=== PATIENT | female | born 1945 | race Caucasian/White ===

== ENCOUNTER 2021-03-14 13:34 | Emergency (ER) | payer MEDICARE, SELFPAY ==
--- NOTE | ~2021-03-14 | XR_ITS ---
EXAMINATION: XR humerus RT, XR elbow RT min 3V DATE: 03/14/2021 14:18 INDICATION: Pain at the posterolateral distal right humerus and elbow post fall TECHNIQUE: 1. Anteroposterior and lateral views of the right humerus were obtained. 2. Anteroposterior, two oblique and lateral views of the right elbow were obtained. COMPARISON: None. FINDINGS: Alignment is normal. No fracture. Joint spaces are normal. No right elbow joint effusion. Soft tissue swelling posterior to the tip of the olecranon. IMPRESSION: 1. Mild soft tissue swelling posterior to the olecranon. Otherwise normal right humerus and elbow rad iographs. Reviewed, dictated and finalized at location A. IMPRESSION: 1. Mild soft tissue swelling posterior to the olecranon. Otherwise normal right humerus and elbow radiographs.
[2021-03-14 13:52] VITALS: BP 125/70; PULSE 70; RESP 18; TEMP 36.8; O2SAT 96
--- NOTE | 2021-03-14 14:01 | ED.UPPEXIN ---
HPI - Extremity Injury (Upper) General Chief Complaint: Extremity Injury, Upper Stated Complaint: fall injury Time Seen by Provider: 03/14/21 14:01 Source: patient and family History of Present Illness HPI narrative: patient states she got up last night and lost her balance, falling into her china cabinet. patient has a skin tear to lateral side of upper arm with bruising to elbow. no deformity. normal rom. patient denies any other injuries and is unsure of her last tetanus shot. MD complaint: injury to: right and arm Related Data Home Medications Medication Instructions Recorded Confirmed albuterol sulfate INHALATION 03/14/21 alendronate mg PO 03/14/21 aspirin 81 mg PO DAILY 03/14/21 03/14/21 azelastine 1 spray INTRANASAL Q12H 03/14/21 03/14/21 bupropion HCl PO 03/14/21 mirtazapine 15 mg PO HS 03/14/21 03/14/21 quetiapine 12.5 mg PO HS 03/14/21 03/14/21 Allergies Allergy/AdvReac Type Severity Reaction Status Date / Time acetaminophen Allergy Unknown Confusion Verified 03/14/21 14:02 butalbital Allergy Unknown Confusion Verified 03/14/21 14:02 caffeine Allergy Unknown Confusion Verified 03/14/21 14:02 Review of Systems Review of Systems: CONSTITUTIONAL: Denies fever, chills, or sweats. EYES: Denies visual changes, redness, or discharge. ENT: Denies rhinorrhea, congestion, sore throat, or otalgia. CARDIOVASCULAR: Denies chest pain, palpitations, or edema. RESPIRATORY: Denies cough or dyspnea. GASTROINTESTINAL: Denies abdominal pain, nausea, vomiting, or diarrhea. GENITOURINARY: Denies dysuria or hematuria. SKIN: Denies rash or itching. MUSCULOSKELETAL: Denies back pain, joint pain, or myalgia. NEUROLOGIC: Denies headache, numbness, or weakness. PSYCHIATRIC: Denies anxiety or depression. PMFSH Comments At time of signature, agree with nursing past medical, surgical, social and family history. There is no relevant family history pertinent to the presenting complaint Exam Narrative: GENERAL: Well-appearing, well-nourished, and in no acute distress. HEAD: Normocephalic, atraumatic. EYES: PERRLA and EOMI. ENT: Nares clear, no rhinorrhea or epistaxis. Mucous membranes moist. NECK: Supple. CHEST: Clear to auscultation. No respiratory distress. HEART: Regular rate and rhythm. No murmur heard. Normal peripheral pulses. ABDOMEN: Soft, nontender, nondistended, normal active bowel sounds. EXTREMITIES: Normal range of motion. No edema. SKIN: Warm, dry, no rash. NEURO: No focal deficits. Alert and oriented x3. [place] Coma Scale Eye Opening: Spontaneous 4 [place] Coma Scale Motor: Obeys Commands 6 [place] Coma Scale Verbal: Oriented 5 [place] Coma Scale Total 15 Extrem: Shoulder/upper arm images: 1. 3.5 cm by 5 cm skin tear 2. bruising Course Vital Signs Vital signs: Vital Signs Temperature 36.8 C 03/14/21 13:52 Pulse Rate 70 03/14/21 13:52 Respiratory Rate 18 03/14/21 13:52 Blood Pressure 125/70 03/14/21 13:52 Pulse Oximetry 96 03/14/21 13:52 Temperature 36.8 C 03/14/21 13:52 Pulse Rate 70 03/14/21 13:52 Respiratory Rate 18 03/14/21 13:52 Blood Pressure 125/70 03/14/21 13:52 Pulse Oximetry 96 03/14/21 13:52 MDM - Extremity Injury (Upper) Differential Diagnosis Differential diagnosis: Likely sprain and strain of wrist, fracture of wrist, finger sprain, dislocation of finger, Colles' fracture, fracture of hand, dislocation of shoulder, fracture of humerus and fracture of clavicle Critical Care Time Critical Care Time Critical Care Time: No Discharge Plan Discharge Clinical Impression: Skin tear of elbow without complication, Skin tear of right upper arm without complication Patient Disposition: Home, Self-Care Condition: Stable Instructions: Antibiotic Form, Abrasion (ED) Additional Instructions: wash area with warm soapy water daily for the next week. apply bacitracin to area and cover with clean dry non stick dressing for 5-7 days follow up
[2021-03-14] MEDS: TETANUS,DIPHTHERIA,AC PERTUSSIS ADULT (0.5 ML) BOOSTRIX IM (14:21)
== END 2021-03-14 14:55 | disposition home or self-care (01) ==
PROVIDERS: Emergency Provider Nurse Practitioner Family; PCP Internal Medicine
DX: S41.111A Laceration without foreign body of right upper arm, initial encounter (principal); S51.011A Laceration without foreign body of right elbow, initial encounter; W19.XXXA Unspecified fall, initial encounter; Z23 Encounter for immunization; I10 Essential (primary) hypertension; M19.90 Unspecified osteoarthritis, unspecified site; F41.9 Anxiety disorder, unspecified; Z79.82 Long term (current) use of aspirin
CPT/HCPCS: 73060; 73080; 90471; 90715; 99213; G0463

== ENCOUNTER 2021-04-30 11:35 | Outpatient (CLI) | payer MEDICARE, SELFPAY ==
[2021-04-30 13:23] LABS: INR 1.1; Prothrombin Time 13.7 Seconds (11.1-14.7)
[2021-04-30 13:24] LABS: Partial Thromboplastin Time 36.8 SECONDS (22.3-36.8)
== END 2021-04-30 11:36 | disposition home or self-care (01) ==
LOC: ANHSURGERY 11:42
PROVIDERS: PCP Internal Medicine; Visit Provider Urology
DX: N81.4 Uterovaginal prolapse, unspecified (principal); N39.3 Stress incontinence (female) (male); Z51.81 Encounter for therapeutic drug level monitoring; Z79.899 Other long term (current) drug therapy
CPT/HCPCS: 36415; 85610; 85730; 86850; 86900; 86901; 87086; 87088

== ENCOUNTER 2021-05-13 00:53 | Day surgery (SDC) | payer MEDICARE, SELFPAY ==
--- NOTE | 2021-04-30 11:34 | PC.NURSE ---
Report to the Outpatient Waiting Room, entrance under the green pavilion located off [facility], at time _0600__ on date _05/13/21_. OR Time: __0730__. - You and your visitor will be asked a series of questions to screen for COVID 19 for your protection. - A mask is required within the hospital. - Only one visitor is allowed at this time. Patient visitors will be guided where to wait when not with patient. Preoperative COVID Testing Requirements: No COVID Test needed if: (proof is required; if not received patient will have Rapid Test prior to entry) - Patient has received COVID Vaccine at least 14 days prior to procedure date or - Patient has positive COVID test result within last 90 days of surgery date. COVID Test needed if above criteria is not met If not COVID vaccinated a COVID test must be conducted within 72 hours of surgery and patient is asked to isolate self from time of testing until procedure. You will go to the [facility] for your COVID testing. The [facility] is located at the corner of [address] [facility]. You will only be called if COVID results are positive and your surgeon may reschedule your elective surgery date. Patients may have clear liquids (water, carbonated beverages, clear teas, apple juice) until 3 hours prior to surgery (0430 AM) with a maximum of 20 ounces. - No food from midnight until time of surgery - Infants may have breast milk until 4 hours before surgery, formula 6 hours prior to surgery. - Children will be allowed to drink immediately following surgery. If applicable, please bring a bottle or sippy cup to assist with drinking. Juice, water, soda, and popsicles are readily available. For infants on formula, please bring formula the day of surgery. Pacifiers are allowed. Take the following medications with a SIP of water the morning of surgery: __AMLODIPINE, BUPROPION, INHALER, LORAZEPAM & NASAL SPAY IF NEEDED__ Medications to discontinue per physician __ASPIRIN & ALL VITAMINS Date to take last dose 04/29/21 Please no make-up, nail northern irish, hairspray, perfume, deodorant, or body powder the day of surgery. No jewelry (including any body piercings) or valuables the day of surgery, leave them at home. Please take a shower or bath the night before, or the morning of, surgery with an antibacterial soap. Wear comfortable, loose fitting clothing. Children are encouraged to wear pajamas. - Jewelry must be removed prior to entering the operating room. Rings and piercings that are not removed may be cut off. - The hospital will not accept responsibility for valuables. - Please leave all valuables, including medications, at home the day of surgery. If you are going home after surgery, a licensed fuel oil truck driver must drive you home. - NO public transportation without another adult. - We recommend that an adult stay with you for 24 hours following discharge. - We also recommend that you do not drive, make important decision, drink alcoholic beverages, or take any drugs that were not prescribed by your health care provider for at least 24 hours after your discharge time. For Pediatric surgeries, we recommend two adults accompany the child home (only one inside the building at this time). Follow any additional instructions given to you from your surgeon. Telephone instructions given to ___PT and asked if any additional questions and then verbalized understanding. Patient advised to call surgeon office or pre surgery nurse liaison [phone] if any additional questions.
[2021-04-30 12:27] VITALS: BP 168/74; PULSE 78; RESP 20; TEMP 37.1; O2SAT 96; BMI 19.3
--- NOTE | 2021-05-07 16:00 | PM.IMHP ---
H&P: HPI History of Present Illness Date/Time: 05/07/21 16:00 75-year-old 4 para 4 admitted for robotic supracervical hysterectomy and bilateral salpingo-oophorectomy secondary to pelvic prolapse. Neal Aden will perform sacral colpopexy as well. Risks and benefits reviewed in great detail Chief Complaint: Uterine prolapse Review of Systems Review of Systems: All systems reviewed & are unremarkable except as noted in HPI and below PMFSH Social History Social History Years smoked: 30 Smoking status: Former smoker Tobacco type: cigarettes Second hand tobacco smoke exposure: No Additional smoking assessment comments: STATES SMOKED 3-4 CIGS/DAY/30 YRS - QUIT 2007 Alcohol intake: never Substance use: never Substance use type: does not use Spiritual care concerns: No Meds Home Medications and Allergies Home Medications Medication Instructions Recorded Confirmed Type albuterol sulfate 2 inh INHALATION Q6H 03/14/21 04/30/21 History amlodipine 5 mg PO QAM 03/14/21 04/30/21 History aspirin 81 mg PO DAILY 03/14/21 04/30/21 History azelastine 1 spray INTRANASAL Q12H PRN 03/14/21 04/30/21 History bupropion HCl 150 mg PO QAM 03/14/21 04/30/21 History cholecalciferol (vitamin D3) 50 mcg PO DAILY 03/14/21 04/30/21 History famotidine 20 mg PO BID 03/14/21 04/30/21 History fluticasone propionate 2 spray INTRANASAL DAILY PRN 03/14/21 04/30/21 History loperamide 2 mg PO DAILY PRN 03/14/21 04/30/21 History loratadine 10 mg PO DAILY 03/14/21 04/30/21 History lorazepam 1 mg PO TID PRN 03/14/21 04/30/21 History mirtazapine 15 mg PO HS 03/14/21 04/30/21 History montelukast 5 mg PO HS 03/14/21 04/30/21 History quetiapine 12.5 mg PO HS 03/14/21 04/30/21 History atorvastatin 10 mg PO HS 04/30/21 04/30/21 History omega-3 fatty acids-vitamin E 1 cap DAILY 04/30/21 04/30/21 History [Fish Oil] Allergies Allergy/AdvReac Type Severity Reaction Status Date / Time acetaminophen Allergy Unknown Confusion Verified 04/30/21 12:12 butalbital Allergy Unknown Confusion Verified 04/30/21 12:12 caffeine Allergy Unknown Confusion Verified 04/30/21 12:12 gluten AdvReac STOMACH Verified 04/30/21 12:13 UPSET Exam Const: General: no acute distress Eyes: General: appearance normal, both eyes and all related structures Neck: Neck: supple and no JVD Thyroid: thyroid normal Resp: Effort & Inspection: normal respiratory effort Auscultation: clear to auscultation bilaterally Cardio: Rate: regular rate Rhythm: regular rhythm GI: Inspection: non-distended GI Palp: Yes Soft to palpation, No Tenderness to palpation present (GI) and No Guarding due to palpation present (GI) Auscultation: normal bowel sounds : External Female Exam: normal external appearance (Uterine prolapse is noted) Speculum Exam - Vagina: normal appearance of the vagina Speculum Exam - Cervix: normal appearance of the cervix Bimanual exam- vagina & uterus: non-tender Bimanual Exam- Adnexa, other: No adnexal tenderness Skin: General skin exam: no rashes or lesions noted Extrem: General: normal to inspection and no edema Psych: Mental Status: mental status grossly normal Affect: normal affect Assessment and Plan Additional Plan Impression: Uterine prolapse Plan: Robotic supracervical hysterectomy and bilateral salpingo-oophorectomy.
--- NOTE | 2021-05-10 09:44 | P.HP_ITS ---
H&P: HPI History of Present Illness Date/Time: 05/10/21 09:44 75-year-old female with uterine prolapse and stress incontinence on urodynamic Chief Complaint: Pelvic organ prolapse, stress incontinence Review of Systems Review of Systems: All systems reviewed & are unremarkable except as noted in HPI and below PMFSH Social History Social History Years smoked: 30 Smoking status: Former smoker Tobacco type: cigarettes Second hand tobacco smoke exposure: No Additional smoking assessment comments: STATES SMOKED 3-4 CIGS/DAY/30 YRS - QUIT 2007 Alcohol intake: never Substance use: never Substance use type: does not use Spiritual care concerns: No Meds Home Medications and Allergies Home Medications Medication Instructions Recorded Confirmed Type albuterol sulfate 2 inh INHALATION Q6H 03/14/21 04/30/21 History amlodipine 5 mg PO QAM 03/14/21 04/30/21 History aspirin 81 mg PO DAILY 03/14/21 04/30/21 History azelastine 1 spray INTRANASAL Q12H PRN 03/14/21 04/30/21 History bupropion HCl 150 mg PO QAM 03/14/21 04/30/21 History cholecalciferol (vitamin D3) 50 mcg PO DAILY 03/14/21 04/30/21 History famotidine 20 mg PO BID 03/14/21 04/30/21 History fluticasone propionate 2 spray INTRANASAL DAILY PRN 03/14/21 04/30/21 History loperamide 2 mg PO DAILY PRN 03/14/21 04/30/21 History loratadine 10 mg PO DAILY 03/14/21 04/30/21 History lorazepam 1 mg PO TID PRN 03/14/21 04/30/21 History mirtazapine 15 mg PO HS 03/14/21 04/30/21 History montelukast 5 mg PO HS 03/14/21 04/30/21 History quetiapine 12.5 mg PO HS 03/14/21 04/30/21 History atorvastatin 10 mg PO HS 04/30/21 04/30/21 History omega-3 fatty acids-vitamin E 1 cap DAILY 04/30/21 04/30/21 History [Fish Oil] Allergies Allergy/AdvReac Type Severity Reaction Status Date / Time acetaminophen Allergy Unknown Confusion Verified 12/07/21 12:12 butalbital Allergy Unknown Confusion Verified 04/30/21 12:12 caffeine Allergy Unknown Confusion Verified 04/30/21 12:12 gluten AdvReac STOMACH Verified 04/30/21 12:13 UPSET Exam Narrative: Anterior wall at +4. [place] at +3. Assessment and Plan Assessment and plan (1) Uterine prolapse: Code(s): N81.4 - Uterovaginal prolapse, unspecified Status: Acute Assessment and Plan: Robotic sacral colpopexy (2) CARMEN (stress urinary incontinence, female): Code(s): N39.3 - Stress incontinence (female) (male) Status: Acute Assessment and Plan: Urethral sling
[2021-05-13] VITALS (22 sets, daily range): BP systolic 108–143; BP diastolic 38–81; PULSE 67–87; RESP 12–20; TEMP 36–36.6; O2SAT 84–100
--- NOTE | 2021-05-13 06:27 | WPDANESEPP ---
Anes - Eval Pre Procedure Procedure: Operation Date: 05/13/21 07:30 Proposed Procedures p Robotic Sacrocolpopexy, Urethral Sling - Ac Aden MD s Robotic Assisted Supracervical Hysterectomy With Bilateral Salpingo-Oophorectomy - Cornel Lima MD Date/Time: 05/13/21 06:27 Pre Op Diagnosis: complete uterine prolapse, cystocele, stress incon Patient Data Age: 75 Gender: F Height: 1.63 m Weight: 51.1 kg Last Vital Signs Temp 37.1 C 04/30/21 12:27 Pulse 78 04/30/21 12:27 Resp 20 04/30/21 12:27 BP 168/74 H 04/30/21 12:27 Pulse Ox 96 04/30/21 12:27 Allergies Allergy/AdvReac Type Severity Reaction Status Date / Time acetaminophen Allergy Unknown Confusion Verified 04/30/21 12:12 butalbital Allergy Unknown Confusion Verified 04/30/21 12:12 caffeine Allergy Unknown Confusion Verified 04/30/21 12:12 gluten AdvReac STOMACH Verified 04/30/21 12:13 UPSET Home Medications Medication Instructions Recorded Confirmed Type albuterol sulfate 2 inh INHALATION Q6H 03/14/21 04/30/21 History amlodipine 5 mg PO QAM 03/14/21 04/30/21 History aspirin 81 mg PO DAILY 03/14/21 04/30/21 History azelastine 1 spray INTRANASAL Q12H PRN 03/14/21 04/30/21 History bupropion HCl 150 mg PO QAM 03/14/21 04/30/21 History cholecalciferol (vitamin D3) 50 mcg PO DAILY 03/14/21 04/30/21 History famotidine 20 mg PO BID 03/14/21 04/30/21 History fluticasone propionate 2 spray INTRANASAL DAILY PRN 03/14/21 04/30/21 History loperamide 2 mg PO DAILY PRN 03/14/21 04/30/21 History loratadine 10 mg PO DAILY 03/14/21 04/30/21 History lorazepam 1 mg PO TID PRN 03/14/21 04/30/21 History mirtazapine 15 mg PO HS 03/14/21 04/30/21 History montelukast 5 mg PO HS 03/14/21 04/30/21 History quetiapine 12.5 mg PO HS 03/14/21 04/30/21 History atorvastatin 10 mg PO HS 04/30/21 04/30/21 History omega-3 fatty acids-vitamin E 1 cap DAILY 04/30/21 04/30/21 History [Fish Oil] Patient hx anesthesia problems: none Family hx anesthesia problems: none Results Review: All pre-operative results and documents have been reviewed as part of the pre-operative evaluation. [facility] Past Medical History Medical History (Updated 05/13/21 @ 06:28 by Deyanira North CRNA) Anemia Anxiety Arthritis COPD (chronic obstructive pulmonary disease) GERD (gastroesophageal reflux disease) HTN (hypertension) Hyperlipidemia Social History Social History Years smoked: 30 Smoking status: Former smoker Tobacco type: cigarettes Second hand tobacco smoke exposure: No Additional smoking assessment comments: STATES SMOKED 3-4 CIGS/DAY/30 YRS - QUIT 2007 Alcohol intake: never Substance use: never Substance use type: does not use Living arrangements: alone Spiritual care concerns: No Exam Day of Procedure 05/13/21 06:27
[2021-05-13] MEDS: LACTATED RINGERS 1,000 ML 30 ML IV CONT ×2 (07:00→10:34)
--- NOTE | 2021-05-13 07:10 | WPDANESEPPF ---
Anes - Initial Pre Proc Eval Procedure: Operation Date: 05/13/21 07:30 Proposed Procedures p Robotic Sacrocolpopexy, Urethral Sling - Ac Aden MD s Robotic Assisted Supracervical Hysterectomy With Bilateral Salpingo-Oophorectomy - Cornel Lima MD Date/Time: 05/13/21 07:10 Surgeon: Ac Aden MD Pre Op Diagnosis: complete uterine prolapse, cystocele, stress incon Patient Data Age: 75 Gender: F Height: 1.63 m Weight: 51.1 kg Last Vital Signs Temp 37.1 C 04/30/21 12:27 Pulse 78 04/30/21 12:27 Resp 20 04/30/21 12:27 BP 168/74 H 04/30/21 12:27 Pulse Ox 96 04/30/21 12:27 Allergies Allergy/AdvReac Type Severity Reaction Status Date / Time gluten Allergy Intermediate Gastrointestinal Verified 05/13/21 06:49 Upset butalbital AdvReac Intermediate Confusion Verified 05/13/21 06:49 Home Medications Medication Instructions Recorded Confirmed Type albuterol sulfate 2 inh INHALATION Q6H 03/14/21 05/13/21 History amlodipine 5 mg PO QAM 03/14/21 05/13/21 History aspirin 81 mg PO DAILY 03/14/21 04/30/21 History azelastine 1 spray INTRANASAL Q12H PRN 03/14/21 05/13/21 History bupropion HCl 150 mg PO QAM 03/14/21 05/13/21 History cholecalciferol (vitamin D3) 50 mcg PO DAILY 03/14/21 04/30/21 History famotidine 20 mg PO BID 03/14/21 05/13/21 History fluticasone propionate 2 spray INTRANASAL DAILY PRN 03/14/21 04/30/21 History loperamide 2 mg PO DAILY PRN 03/14/21 05/13/21 History loratadine 10 mg PO DAILY 03/14/21 05/13/21 History lorazepam 1 mg PO TID PRN 03/14/21 05/13/21 History mirtazapine 15 mg PO HS 03/14/21 05/13/21 History montelukast 5 mg PO HS 03/14/21 05/13/21 History quetiapine 12.5 mg PO HS 03/14/21 05/13/21 History atorvastatin 10 mg PO HS 04/30/21 05/13/21 History omega-3 fatty acids-vitamin E 1 cap DAILY 04/30/21 04/30/21 History [Fish Oil] Patient hx anesthesia problems: none Family hx anesthesia problems: none Results Review: All pre-operative results and documents have been reviewed as part of the pre-operative evaluation. [facility] Past Medical History Medical History Anemia Anxiety Arthritis COPD (chronic obstructive pulmonary disease) GERD (gastroesophageal reflux disease) HTN (hypertension) Hyperlipidemia Pericarditis Social History Social History Years smoked: 30 Smoking status: Former smoker Tobacco type: cigarettes Second hand tobacco smoke exposure: No Additional smoking assessment comments: STATES SMOKED 3-4 CIGS/DAY/30 YRS - QUIT 2007 Alcohol intake: never Substance use: never Substance use type: does not use Living arrangements: alone Spiritual care concerns: No Anes - Eval Final PreProcedure Day of Procedure 05/13/21 07:10 Patient weight: normal Heart: regular rate and rhythm Lungs: decreased breath sounds Airway: Mallampati scale class II Neurological: other (alert) Last oral intake: >/= 8 hours ASA classification: III Emergent: no Anesthetic plan: proceed Anesthesia type and monitoring: general ETT and standard monitoring Results Review: All pre-operative results and documents have been reviewed as part of the pre-operative evaluation. Informed Consent: The patient's anesthetic plan and its attendant risks and benefits were discussed with the patient/family/POA. Questions were solicited and answers provided to the satisfaction of the patient/family/POA.
--- NOTE | 2021-05-13 07:14 | WPDHPUPDATE1 ---
History and Physical Update Update Date/Time: 05/13/21 07:14 History and Physical has been reviewed, including an updated exam of the patient. There are NO changes in the patient's condition. Risks, benefits, and alternatives have been discussed and questions answered. Patient agrees to proceed with procedure.
--- NOTE | 2021-05-13 07:15 | WPDHPUPDATE1 ---
History and Physical Update Update Date/Time: 05/13/21 07:15 History and Physical has been reviewed, including an updated exam of the patient. There are NO changes in the patient's condition. Risks, benefits, and alternatives have been discussed and questions answered. Patient agrees to proceed with procedure.
[2021-05-13] MEDS: ACETAMINOPHEN 500 MG TABLET 1000 MG PO (07:16)
[2021-05-13] MEDS: KETOROLAC 15 MG/ML VIAL (*BKC) IV PUSH (07:20)
[2021-05-13] MEDS: ceFAZolin 2 GM/D5W 50 ML 2 GM/50 ML BAG IVPB (07:24)
[2021-05-13] MEDS: metroNIDAZOLE 500 MG/ISO 100ML 500 MG/100 ML BAG 100 MG IVPB ×2 (07:26→16:41)
[2021-05-13] MEDS: LIDO 1%/EPINEPHRINE 1:100,000 50 ML VIAL 30 ML INFILTRATE (08:15)
--- NOTE | 2021-05-13 08:21 | P.OP_ITS ---
Procedure Note - Detailed Date of Procedure 05/13/21 Pre-op Diagnosis complete uterine prolapse, cystocele, stress incon Post-op Diagnosis same Procedure Performed Robotic supracervical hysterectomy and bilateral salpingo-oophorectomy Surgeon Cornel Lima MD Anesthesia general Indications This 75-year-old female with complete prolapse Findings Small prolapsed uterus. Normal-appearing ovaries and tubes bilaterally. Description of Procedure The patient is prepped draped in the normal sterile fashion placed in dorsal lithotomy position. Under excellent general trach anesthesia weighted speculum placed posterior fornix vagina. Anterior lip of the cervix grasped with single- tooth tenaculum and the Beck's cannula inserted attached to be used 3 uterine manipulation. A 16 Mongolian catheter was placed in the bladder and Dr. Aden proceeded to dock the robot and placed the port. Please see his operative report for full details After the robot had been docked by Dr. Aden, attention was turned to the counseling specialist. The left infundibulopelvic structure was skeletonized clamped burned and cut and brought to the round ligament at the top. The left round ligament was grasped, burned, cut. Anteriorly a bladder flap was formed by sharply dissecting the peritoneum and reflecting the bladder caudally away from the cervix and uterus to the opposite round ligament which was clamped, burned, cut. Next the right infundibulopelvic structures were skeletonized to remove the right ovary and tube. They were clamped, burned, cut and brought to the level of previously cut round ligament. Following this the left cardinal broad ligaments were serially skeletonized sliding along the cervix and uterus clamping burning cutting hugging the cervix and uterus until the uterine vessels could be seen on the left. These were individually clamped, burned, cut. In like fashion the cardinal broad ligaments on the right were serially skeletonized. Clamping burning cutting sliding along the edge of the cervix and uterus until the uterine vessels on the right could be seen. These were individually clamped, burned, cut. A supracervical incision was made in the cervix was left as a stump. The uterus tubes and ovaries were placed in an Endo-Catch and Dr. Aden took over from there. Blood loss was 5cc to this point. There were no complications up to this point. Estimated Blood Loss 5 Drains No Packing No Pathology yes Complications No immediate complications Condition stable Disposition no change
--- NOTE | 2021-05-13 10:27 | W.PM.PROC2 ---
Procedure Note - Detailed Date of Procedure 05/13/21 Pre-op Diagnosis complete uterine prolapse, female perineal laxity, stress urinary incontinence Post-op Diagnosis same Procedure Performed robotic assisted laparoscopic sacral colpopexy urethral sling perineal repair /perineoplasty cystoscopy Surgeon Ac Aden MD Anesthesia general Indications this is a woman with uterine prolapse, stress incontinence, and female perineal laxity. They present for surgery. They understand risks of bleeding, infection, damage to surrounding organs, damage to the bowel or urinary tract, diskitis, recurrence of prolapse, recurrent or persistent stress incontinence, vaginal or urinary tract mesh exposure, obstructive voiding requiring secondary procedure, hip and leg pain, dyspareunia, and other perioperative intraoperative and postoperative complications. They agreed to proceed. Findings See dictation Description of Procedure She was correctly identified. Informed consent is obtained. She was brought to the operating room. She was given general anesthesia. She was placed in the dorsal lithotomy position. All pressure points were padded. She was given appropriate perioperative antibiotics. A time-out was performed. I anesthetized the skin 3 fingerbreadths cephalad to the umbilicus. I incised the skin. I grasped the fascia with Srini clamps. I entered the fascia sharply in a Hason type technique. I placed Vicryl sutures for later fascial closure. the midline trocar was placed. Under direct vision 2 additional trocars were placed in the right and left upper quadrant. She was placed in steep Trendelenburg. The robot was docked. I turned her over to her medical technologist blood bank for their portion of the procedure. That will be dictated in a separate op note. I then sat at the console. With a Sizer in the vagina I created a plane on the anterior and posterior vaginal wall for several cm taking great care not to injure the vagina bladder or rectum. I introduced the mesh into the abdomen. I sewed the anterior leaf of the mesh on the anterior vaginal wall and the posterior leaflet of mesh on the posterior vaginal wall with multiple sutures of 2 0 Lorenzo-Ashvin taking great care not to go through and through. I reflected the colon laterally. I opened up the posterior peritoneum over the sacral promontory and carried this incision into the cul-de-sac. I freed up the edges for later retroperitonealization of the mesh. The right ureter was seen and kept laterally. I located the anterior longitudinal ligament of the sacrum. It was cleaned off of all fatty tissues. I tensioned my mesh appropriately. I went to the bedside to perform a vaginal exam. There was good apical support without undue tension. There was a small amount of residual cystocele which I opted not to address.I then sewed the proximal leaflet of mesh onto the anterior longitudinal ligament with 4 sutures of 2 0 Lorenzo-Ashvin. I then used a 2 0 Monocryl to meticulously retroperitonealized all mesh. I allowed the colon to go back into its normal anatomic location. There is no signs of any impingement. The specimen was extracted. The abdomen was exited. Fascial sutures were closed. Wounds were irrigated. Skin was closed with Monocryl as well as surgical glue. She was then repositioned and prepped for perineal surgery. I anesthetized the grace-shaped area of skin on the perineum. I removed this area of skin. I performed a classic perineal repair with 0 Vicryl suture. I used a 2 0 Vicryl to close the mucosa. There was excellent perineal support without undue narrowing of the vagina. I then marked out the inner thigh incisions. I anesthetized the skin and made those incisions. I then anesthetized the anterior vaginal wall over the mid urethra. I made a 1 cm incision. I dissected out laterally taking great care not to injure the urethra or the vaginal wall. I then passed the hel
--- NOTE | 2021-05-13 13:50 | PC.NURSE ---
This patient, La Bowling, was received from PACU per bed to room 281. Patient/family oriented to unit policies and routines
[2021-05-13] MEDS: KCL 20 MEQ/D5/0.45% SOD CHL 1,000 ML 100 ML IV CONT (15:05)
[2021-05-13] MEDS: ALBUTEROL SULFATE (*SP) AEROSOL 1 PUFF 2 PUFF INHALATION (15:58)
[2021-05-13] MEDS: MONTELUKAST SODIUM 5 MG TABLET PO (21:01)
[2021-05-13] MEDS: ATORVASTATIN 10 MG TABLET PO (21:01)
[2021-05-13] MEDS: FAMOTIDINE 20 MG TABLET PO (21:01)
[2021-05-13] MEDS: MIRTAZAPINE SOLTAB 15 MG TAB.DISPER PO (21:01)
[2021-05-13] MEDS: QUEtiapine FUMARATE 12.5 MG TABLET PO (21:02)
[2021-05-13] MEDS: ACETAMINOPHEN 325 MG TABLET 650 MG PO (21:14)
[2021-05-13] MEDS: LORazepam (*CRX) 0.5 MG TABLET 1 MG PO (23:15)
--- NOTE | 2021-05-13 23:40 | PC.NURSE ---
Attempted to call Wilbur, son, by telephone to notify of increased confusion and combativeness. Unable to reach at this time.
[2021-05-13] MEDS: MORPHINE SULFATE (*CRX) 2 MG/ML INJ IV PUSH (23:46)
[2021-05-14] VITALS: PULSE 90; RESP 20; O2SAT 93
[2021-05-14] MEDS: PROMETHAZINE HCL 25 MG/ML AMPUL 12.5 MG IV PUSH (00:35)
[2021-05-14] MEDS: metroNIDAZOLE 500 MG/ISO 100ML 500 MG/100 ML BAG 100 MG IVPB ×2 (00:38→08:18)
[2021-05-14] MEDS: MORPHINE SULFATE (*CRX) 2 MG/ML INJ IV PUSH (03:16)
[2021-05-14] MEDS: KCL 20 MEQ/D5/0.45% SOD CHL 1,000 ML 100 ML IV CONT (03:20)
[2021-05-14] MEDS: ALBUTEROL SULFATE (*SP) AEROSOL 1 PUFF 2 PUFF INHALATION ×2 (03:29→10:40)
--- NOTE | 2021-05-14 03:30 | PCRCNOTE ---
Pt refused to wear BIPAP. Day shift put pt on the BIPAP and Nurse took it off due to pt trying to rip it off. Rt tried to reapply bipap around 1999 PT refused and stated they were not going to wear it. RT tried again around 299 and pt once again refused.
[2021-05-14 04:35] VITALS: PULSE 77; RESP 22; O2SAT 94
[2021-05-14 04:59] VITALS: BP 144/52; PULSE 77; RESP 22; O2SAT 94
--- NOTE | 2021-05-14 07:15 | PM.GYNPNOP ---
STEVEDORING SUPERINTENDENT - A/P Postoperative Procedures: Procedures Operation Date: 05/13/21 07:30 Actual Procedure Side Surgeon p Robotic Sacrocolpopexy Not Applicable Ac Aden MD s Robotic Assisted Supracervical Hysterectomy With Bilateral Salpingo-Oophorectomy Bilateral Cornel Lima MD s Urethral Sling, Perineal Repair Not Applicable Ac Aden MD Time Spent With Patient Time: Total time spent is greater than 50% in coordination of care (as documented) at patient's floor/unit and/or counseling patient: Time with patient: less than 15 minutes STEVEDORING SUPERINTENDENT- PN:Subj Post-Op Subjective Date/time seen: 05/14/21 07:15 Subjective: patient reports feeling better and other (was combative last night. better today) Review of Systems Review of Systems: All systems reviewed & are unremarkable except as noted in HPI and below Exam Const: General: no acute distress Eyes: General: appearance normal, both eyes and all related structures Neck: Neck: supple and no JVD Thyroid: thyroid normal Resp: Effort & Inspection: normal respiratory effort Auscultation: clear to auscultation bilaterally Cardio: Rate: regular rate Rhythm: regular rhythm GI: Inspection: non-distended GI Palp: Yes Soft to palpation, No Tenderness to palpation present (GI) and No Guarding due to palpation present (GI) Auscultation: normal bowel sounds : General: Yes bladder normal to palpation External Female Exam: normal external appearance Speculum Exam - Vagina: normal vaginal discharge and No vaginal bleeding Speculum Exam - Cervix: nontender Bimanual exam- vagina & uterus: bladder normal to palpation and No Cervical tenderness present OB/external & speculum: No vaginal bleeding Skin: General skin exam: no rashes or lesions noted Extrem: General: normal to inspection and no edema Psych: Mental Status: mental status grossly normal Affect: normal affect STEVEDORING SUPERINTENDENT - PN: Obj Data Vital Signs Vital Signs: Vital Signs - 24 hr 05/13/21 10:34 05/13/21 10:45 05/13/21 10:58 Temperature 96.8 F L Pulse Rate 74 76 76 Respiratory Rate 16 16 17 Blood Pressure 138/43 L 134/39 L Pulse Oximetry 100 100 99 05/13/21 11:00 05/13/21 11:15 05/13/21 11:30 Temperature Pulse Rate 75 73 71 Respiratory Rate 18 18 16 Blood Pressure 141/43 H 143/43 H 130/41 L Pulse Oximetry 96 93 93 05/13/21 11:45 05/13/21 12:00 05/13/21 12:15 Temperature Pulse Rate 75 72 71 Respiratory Rate 16 16 13 Blood Pressure 135/48 L 121/38 L 115/42 L Pulse Oximetry 92 91 92 05/13/21 12:30 05/13/21 12:45 05/13/21 13:00 Temperature Pulse Rate 68 69 70 Respiratory Rate 13 14 14 Blood Pressure 125/47 L 116/39 L 119/38 L Pulse Oximetry 92 92 93 05/13/21 13:15 05/13/21 13:30 05/13/21 13:43 Temperature Pulse Rate 67 70 78 Respiratory Rate 12 12 16 Blood Pressure 109/51 L 110/46 L 120/53 L Pulse Oximetry 92 92 92 05/13/21 13:50 05/13/21 13:55 05/13/21 15:45 Temperature 97 F L Pulse Rate 73 87 Respiratory Rate 18 20 Blood Pressure 120/51 L 122/49 L Pulse Oximetry 94 84 L 93 05/13/21 15:55 05/13/21 17:45 05/13/21 19:20 Temperature 97.7 F Pulse Rate 85 87 Respiratory Rate 13 20 18 Blood Pressure 108/48 L Pulse Oximetry 93 91 100 05/14/21 00:00 05/14/21 04:35 05/14/21 04:59 Temperature Pulse Rate 90 77 77 Respiratory Rate 20 22 H 22 H Blood Pressure 144/52 H Pulse Oximetry 93 94 94 Intake/Output Intake/Output: Intake & Output 05/11/21 05/12/21 05/13/21 05/14/21 23:59 23:59 23:59 23:59 Intake Total 1290 1000 Output Total 400 700 Balance 890 300 Meds/Results Medications: Active Medications Generic Name Dose Route Start Last Admin Trade Name Freq PRN Reason Stop Dose Admin Acetaminophen 650 mg 05/13/21 13:47 05/13/21 21:14 Acetaminophen 325 Mg Tablet PO 650 mg Q4H PRN Administration Mild Pain (1-3) or Fever Hydrocodone Bitart/Acetaminophen 1 tab 05/13/21 13:47 Hydrocodone/Aceta
--- NOTE | 2021-05-14 07:29 | PC.NURSE ---
05/13/21 at approx 2225 pt called her son, Cj, to tell him that we are keeping her hostage here . Pt is axox1, very agitated, angry, and noncompliant. Requested to speak with pt's son on the phone and requested him to come to the hospital to sit with his mother. Cj unable to comply since he has bronchitis and not feeling well. He was going to contact his brother, Wilbur. 2315: PO ativan administered per order 2330: Bed alarm going off and pt found standing on the side of her bed pulling on her iv and canela, yelling, combative, stomping on this RN's feet, clawing, and threw water from water pitcher all over the room. Pt assisted to chair for safety and nursing mold shop supervisor, Annie, notified of situation. 2345: Pt now c/o severe pain after getting up and given ivp morphine. Nursing mold shop supervisor at bedside at this time. 0000: vitals 90, 20, 131/56 with o2 sats of 93% on room air. Temperature was UTO at this time. 0020: Dr. Aguilar adoption manager and updated on pt's status. Orders received for phenergan 12.5mg ivp and may transfer pt to another division for further safety concerns if necessary. 0100: Pt currently resting quietly with no distress noted. Bed alarm remains in use and nurses charting at bedside and L&D tech sitting with pt for safety. 0245: Son, Wilbur called floor after seeing his phone messages and to come to sit with pt. 0320: Wilbur arrived in room and updated on pt's mental status and actions earlier in shift. Son states that mother lives alone and is typically ax0x4. Pt was currently put on 1Lo2/nc for sats in the upper 80's and currently with sats 92-94%. O2 dc'd however NC left in place since pt is currently asleep. Son instructed to call out if pt awakens in pain, o2 sats drop, or if pt attempts to get out of bed again. 0435: Pt remains quietly asleep with o2 sats 92% on room air.
[2021-05-14] MEDS: LORATADINE 10 MG TABLET PO (07:32)
[2021-05-14] MEDS: DOCUSATE SODIUM 100 MG CAPSULE PO (07:32)
[2021-05-14] MEDS: amLODIPine BESYLATE 5 MG TABLET PO (07:32)
[2021-05-14] MEDS: FAMOTIDINE 20 MG TABLET PO (07:33)
[2021-05-14] MEDS: buPROPion HCL SR (12 HR) 150 MG TAB PO (07:33)
[2021-05-14] MEDS: ENOXAPARIN 30 MG/0.3 ML SYRINGE SUB-Q (07:35)
[2021-05-14 07:40] VITALS: BP 156/61; PULSE 87; RESP 16; O2SAT 93
[2021-05-14 08:25] VITALS: TEMP 37.6
--- NOTE | 2021-05-14 08:49 | WPDANESPN ---
Anes - Prog Note Post-Op Date/Time: 05/14/21 08:49 Cardiovascular status: normal Respiratory status: normal Airway patency: baseline Mental status: baseline Post-Op hydration status: normal Vital Signs: Last Vital Signs Temp 36.5 C 05/13/21 19:20 Pulse 77 05/14/21 04:59 Resp 22 H 05/14/21 04:59 BP 144/52 H 05/14/21 04:59 Pulse Ox 94 05/14/21 04:59 Pain Score (VAS): 0 I/O: Intake & Output 05/13/21 05/14/21 05/14/21 23:59 07:59 15:59 Intake Total 790 1150 Output Total 400 700 Balance 390 450 Post-procedural complaints: none Patient Feedback: Patient satisfied with anesthetic care.
--- NOTE | 2021-05-14 10:00 | PC.NURSE ---
Patient's son expressed concerns regarding her confusion after the surgery, she has improved but the son would like information for further care if needed. RN will consult with Stephanie Joseph and possibly order a care coordination consultation.
--- NOTE | 2021-05-14 10:40 | PCRCNOTE ---
Window of time for administration has passed. See next scheduled administration.
[2021-05-14] MEDS: ACETAMINOPHEN 325 MG TABLET 650 MG PO (14:13)
[2021-05-14] MEDS: CEPHALEXIN 500 MG CAPSULE PO (14:13)
[2021-05-14 14:51] VITALS: PULSE 78; O2SAT 94
--- NOTE | 2021-05-14 15:19 | PCCCNOTE ---
CC met with pt. and her son this morning to discuss discharge planning. Pt.'s current D/C plan is to return home alone. Pt. lives alone but her sons will be coming to her house to assist when needed. Pt. is independent with ADLs and uses a walker for ambulation. She has been walking around her room with assist of staff. Pt. has been provided with a list of private duty caregivers. She was confused yesterday but is slowly becoming more aware and alert. Pt. has no other D/C needs or concerns. No further need for CC services at this time.
== END 2021-05-14 16:34 | disposition home or self-care (01) ==
LOC: ANHSURGERY 06:02 → ANHOB2 14:07
PROVIDERS: Obstetrics & Gynecology; PCP Internal Medicine; Visit Provider Urology
PROC: (CPT 57425; principal; 2021-05-13 07:30)
PROC: 0UT94ZZ Resection of Uterus, Percutaneous Endoscopic Approach (ICD-10-PCS; CPT 57425; 2021-05-13 07:30)
PROC: (CPT 57425; 2021-05-13 07:30)
DX: N81.3 Complete uterovaginal prolapse (principal); N39.3 Stress incontinence (female) (male); N80.0 Endometriosis of uterus; D25.1 Intramural leiomyoma of uterus; K66.8 Other specified disorders of peritoneum; N73.6 Female pelvic peritoneal adhesions (postinfective); J44.9 Chronic obstructive pulmonary disease, unspecified; I10 Essential (primary) hypertension; E78.5 Hyperlipidemia, unspecified; K21.9 Gastro-esophageal reflux disease without esophagitis; D64.9 Anemia, unspecified; F41.9 Anxiety disorder, unspecified; Z87.891 Personal history of nicotine dependence; Z79.51 Long term (current) use of inhaled steroids; Z79.82 Long term (current) use of aspirin
CPT/HCPCS: 57425; 57288; 58542; S2900 ×2; 88307; 94640; 99199; A9270; C1771; C1781; C9290; J0690; J1100; J1650; J1885; J2250; J2270; J2370; J2405; J2550; J2704; J2710; J3480; J7030; J7120

== ENCOUNTER 2023-04-10 12:32 | Emergency (ER) | payer MEDICARE, SELFPAY ==
--- NOTE | ~2023-04-10 | XR_ITS ---
Clinical Indication: Shortness of breath PA and lateral views of the chest: Comparison: None Findings: There is an irregular airspace opacity focally in the right upper lobe. Remainder of lungs are clear. Possible COPD. Cardiomediastinal silhouette is within normal limits. Bones and soft tissue s are unremarkable. Impression: Irregular/spiculated opacity in the right upper lobe. This is indeterminate. Chest CT recommended for further evaluation. Possible COPD. Reviewed, dictated and finalized at location M. MACHINE OPERATOR Impression: Irregular/spiculated opacity in the right upper lobe. This is indeterminate. Ch est CT recommended for further evaluation. Possible COPD.
[2023-04-10 12:40] VITALS: BP 115/57; PULSE 87; RESP 20; TEMP 36.8; O2SAT 96
--- NOTE | 2023-04-10 13:35 | ED.URI ---
HPI - URI/Sore Throat General Chief Complaint: Upper Respiratory Infection Stated Complaint: sore throat/sob Time Seen by Provider: 04/10/23 12:50 Source: patient Mode of arrival: ambulatory Limitations: no limitations History of Present Illness HPI Narrative: Kristin is a 77-year-old female patient presenting to clinic today with complaints of sore throat, shortness of breath, cough, body aches, and congestion x3 days. Has had exposure to her grandson who was positive for strep. Denies any chest pain or known fever. MD elicited complaint: cough, sore throat, nasal congestion and other (Shortness of breath) Related Data Home Medications Medication Instructions Recorded Confirmed albuterol sulfate 90 mcg/actuation 2 inh inhalation Q6H 03/14/21 04/10/23 aerosol inhaler amlodipine 5 mg tablet 5 mg PO QAM 03/14/21 04/10/23 aspirin 81 mg capsule 81 mg PO DAILY 03/14/21 04/10/23 azelastine 137 mcg (0.1 %) nasal 1 spray intranasal Q12H PRN 03/14/21 04/10/23 spray aerosol Congestion bupropion HCl 150 mg tablet,12 hr 150 mg PO QAM 03/14/21 04/10/23 sustained-release cholecalciferol (vitamin D3) 25 50 mcg PO DAILY 03/14/21 04/10/23 mcg (1,000 unit) tablet famotidine 20 mg tablet 20 mg PO BID 03/14/21 04/10/23 fluticasone propionate 50 2 spray intranasal DAILY PRN 03/14/21 04/10/23 mcg/actuation nasal Congestion spray,suspension loperamide 2 mg capsule 2 mg PO DAILY PRN Anxiety 03/14/21 04/10/23 loratadine 10 mg tablet 10 mg PO DAILY 03/14/21 04/10/23 lorazepam 1 mg tablet 1 mg PO TID PRN Anxiety 03/14/21 04/10/23 mirtazapine 30 mg tablet 15 mg PO HS 03/14/21 04/10/23 montelukast 10 mg tablet 5 mg PO HS 03/14/21 04/10/23 quetiapine 25 mg tablet 12.5 mg PO HS 03/14/21 04/10/23 atorvastatin 10 mg tablet 10 mg PO HS 04/30/21 04/10/23 omega-3 fatty acids-vitamin E 1 cap PO DAILY 04/30/21 04/10/23 1,000 mg capsule Allergies Allergy/AdvReac Type Severity Reaction Status Date / Time gluten Allergy Intermediate Gastrointestinal Verified 04/10/23 12:59 Upset butalbital AdvReac Intermediate Confusion Verified 04/10/23 12:59 Review of Systems Review of Systems: Pertinent positives per HPI. Patient denies any fever, chills, rash, headache, visual changes, dizziness, chest pain, palpitations, nausea, vomiting, diarrhea, constipation, abdominal pain, or any urinary issues. [facility] Past Medical History Medical History Anemia Anxiety Arthritis COPD (chronic obstructive pulmonary disease) GERD (gastroesophageal reflux disease) HTN (hypertension) Hyperlipidemia Pericarditis Social History Social History Years smoked: 30 Smoking status: Former smoker Second hand tobacco smoke exposure: No Additional smoking assessment comments: STATES SMOKED 3-4 CIGS/DAY/30 YRS - QUIT 2007 Alcohol intake: never Substance use: never Substance use type: does not use Living arrangements: alone Spiritual care concerns: No Comments At the time of my signature, I reviewed and agree with the nursing past medical, surgical, social, and family history. There is no relevant family history pertinent to the patient complaint. Exam Narrative: General: Well-developed, thin, in no apparent distress Head: Normocephalic, atraumatic Eyes: Pupils equally round and reactive to light bilaterally, EOM intact, sclera and conjunctive clear, no discharge, lids normal Ears: TMs intact and clear, ear canals clear, no drainage, grossly hearing normal. Nose: Nares patent, clear nasal discharge, no inflammation, no sinus tenderness. Mouth: Oral pharynx without lesions or masses, good dentition, MMM. Neck: Supple, trachea midline, no enlargement of anterior or posterior cervical nodes, no thyroid masses or goiter palpable. Cardio: Regular rate and rhythm, s1 and s2 normal, no murmur appreciated. Resp: Diminished br
== END 2023-04-10 13:40 | disposition home or self-care (01) ==
PROVIDERS: Emergency Provider Nurse Practitioner Family; PCP Physician Assistant
DX: J44.1 Chronic obstructive pulmonary disease with (acute) exacerbation (principal); Z20.822 Contact with and (suspected) exposure to COVID-19; K21.9 Gastro-esophageal reflux disease without esophagitis; I10 Essential (primary) hypertension; E78.5 Hyperlipidemia, unspecified; Z87.891 Personal history of nicotine dependence; F41.9 Anxiety disorder, unspecified; Z79.82 Long term (current) use of aspirin
CPT/HCPCS: 71046; 87081; 87426; 87804; 87880; 99213; C9803; G0463

== ENCOUNTER 2023-08-24 10:35 | Emergency (ER) | payer MEDICARE, SELFPAY ==
[2023-08-24 10:46] VITALS: BP 157/52; PULSE 82; RESP 20; TEMP 37; O2SAT 96
--- NOTE | 2023-08-24 11:18 | ED.WOUNDLAC ---
HPI - Wound/Laceration General Chief Complaint: Wound/Laceration Stated Complaint: poss UTI/right leg lac Time Seen by Provider: 08/24/23 11:00 Source: patient, family and RN notes reviewed Mode of arrival: ambulatory Limitations: no limitations History of Present Illness HPI narrative: 78 year old female accompanied by daughter and friend presents to express care with complaints of urgency frequency of urination and some pubic pain. Daughter states that mother seems to be confused today and she noticed that there are several missed doses of medication in the evening medication dispenser. and wonders if she has UTI. Daughter states that mother reports that she was standing on metal disc pad grinder the garage this morning and she fell off causing laceration to her right lower leg with no active bleeding noted. Daughter states she also told her she went to the garage to look for her cell phone in the car and fell but daughter states car was sold a few years ago.Daughter reports that her brother is her power of patent attorney and fills her mother's medication dispenser. Daughter states that mother was hospitalized with colon infection a few weeks ago and that she has since had some kidney issues and is scheduled for some labs in the next few days. Onset (ago): day(s) (today) Extremity Location: Right: lower leg (right dorsal lower leg) Place: home Treatments prior to arrival: bandage Related Data Home Medications Medication Instructions Recorded Confirmed albuterol sulfate 90 mcg/actuation 2 inh inhalation Q6H 03/14/21 08/24/23 aerosol inhaler amlodipine 5 mg tablet 5 mg PO QAM 03/14/21 08/24/23 aspirin 81 mg capsule 81 mg PO DAILY 03/14/21 08/24/23 azelastine 137 mcg (0.1 %) nasal 1 spray intranasal Q12H PRN 03/14/21 08/24/23 spray aerosol Congestion bupropion HCl 150 mg tablet,12 hr 150 mg PO QAM 03/14/21 08/24/23 sustained-release cholecalciferol (vitamin D3) 25 50 mcg PO DAILY 03/14/21 08/24/23 mcg (1,000 unit) tablet famotidine 20 mg tablet 20 mg PO BID 03/14/21 08/24/23 fluticasone propionate 50 2 spray intranasal DAILY PRN 03/14/21 08/24/23 mcg/actuation nasal Congestion spray,suspension loperamide 2 mg capsule 2 mg PO DAILY PRN Anxiety 03/14/21 08/24/23 loratadine 10 mg tablet 10 mg PO DAILY 03/14/21 08/24/23 lorazepam 1 mg tablet 1 mg PO TID PRN Anxiety 03/14/21 08/24/23 mirtazapine 30 mg tablet 15 mg PO HS 03/14/21 08/24/23 montelukast 10 mg tablet 5 mg PO HS 03/14/21 08/24/23 quetiapine 25 mg tablet 12.5 mg PO HS 03/14/21 08/24/23 atorvastatin 10 mg tablet 10 mg PO HS 04/30/21 08/24/23 Allergies Allergy/AdvReac Type Severity Reaction Status Date / Time gluten Allergy Intermediate Gastrointestinal Verified 08/24/23 11:51 Upset butalbital AdvReac Intermediate Confusion Verified 08/24/23 11:51 Review of Systems Review of Systems: CONSTITUTIONAL: Denies fever, chills, or sweats. EYES: Denies visual changes, redness, or discharge. ENT: Denies rhinorrhea, congestion, sore throat, or otalgia. CARDIOVASCULAR: Denies chest pain, palpitations, or edema. RESPIRATORY: Denies cough or acute dyspnea. GASTROINTESTINAL: Denies abdominal pain, nausea, vomiting, or diarrhea. GENITOURINARY: Denies dysuria or hematuria, reports some pubic discomfort and frequency and urgency of urination SKIN: Denies rash or itching. MUSCULOSKELETAL: Denies back pain, joint pain, or myalgia. NEUROLOGIC: Denies headache, numbness, or weakness. PSYCHIATRIC: Reports history of anxiety or depression.daughter reports some confusion today All systems reviewed & are unremarkable except as noted in HPI and below PMFSH Past Medical History Medical History (Updated 08/25/23 @ 09:55 by Aure Carrillo NP) Anemia Anxiety Arthritis Celiac disease COPD (chronic obstructive pulmonary disease) GERD (gastroesophageal reflux disease) HTN (hypertension) Hyperlipidemia Kidney disorder daughter reports that kidney function is decreased Pericarditis S
--- NOTE | 2023-08-30 15:32 | PC.NURSE ---
TATYANA SALMON CALLED FROM [facility] WHOM REPORTS PT IS A PT IN THE [facility] AT [facility] AND THE ATTENDING DOCTOR IS REQUESTING URINE CULTURE RESULTS. TATYANA SALMON ADVISED OF CULTURE RESULTS AND ATTEMPTS OF DIANNE HECTOR NP TO CONTACT THE PT WITHOUT SUCCESS TO DISCUSS THE LAB RESULTS. TATYANA SALMON VERBALIZED UNDERSTANDING AND IS PASSING THIS INFORMATION ONTO THE ATTENDING MD. PT IS TO BE DISCHARGED FROM [facility] TODAY. BESSIE LE RN
== END 2023-08-24 12:00 | disposition home or self-care (01) ==
PROVIDERS: Emergency Provider Registered Nurse; PCP Physician Assistant
DX: N39.0 Urinary tract infection, site not specified (principal); B95.2 Enterococcus as the cause of diseases classified elsewhere; S81.812A Laceration without foreign body, left lower leg, initial encounter; W17.89XA Other fall from one level to another, initial encounter; K90.0 Celiac disease; M19.90 Unspecified osteoarthritis, unspecified site; J44.9 Chronic obstructive pulmonary disease, unspecified; K21.9 Gastro-esophageal reflux disease without esophagitis; I10 Essential (primary) hypertension; E78.5 Hyperlipidemia, unspecified; F41.9 Anxiety disorder, unspecified; Z87.891 Personal history of nicotine dependence
CPT/HCPCS: 12001; 81003; 87077; 87086; 87088; 87181; 99213; G0463